=== PATIENT | female | born 1955 | race Caucasian/White ===

== ENCOUNTER → 2016-11-01 | Outpatient (CLI) | payer BC ==
[~2016-11-01] MED LIST: ACETAMINOPHEN PO; ANTIVERT12.5 MG PO; ASPIRIN PO; ASPIRIN81 M2 PO; B12 PO; GLUCOPHAGE XR500 MG PO; LANTUS100 U/ML SUBQ; LISINOPRIL PO; LISINOPRIL30 MG PO; METFORMIN PO; NAPROSYN500 MG PO; PREMARIN; ROBAXIN500 MG PO; ST JOHN'S WART PO; VICODIN 5/1 TAB 5/50 PO; [UNRECOGNIZED DRUG - REMARK]
--- NOTE | ~2016-11-01 | MY11 ---
[facility] A Service of [facility] RADIOLOGY TEXT RESULTS PATIENT: CANDY BELTRÁN LOCATION: [facility] : 57 UNIT #: [id number] AGE: [address]: Renee Askew MD SEX: F ORDER DR: [id number] [facility] [address]. [place], [place] [address] [id number] O MR#: [id number] Acc #: [id number] NAME: CANDY BELTRÁN : 1955 SEX: F STUDY DATE/TIME: 11/01/2016 14:35 UNIT: [facility] ROOM: STUDY DESCRIPTION: MY Mammogram Screening Dig Talat Attending Physician: Renee Askew M.D. Ordering Physician: Renee Askew M.D. Primary Care Physician: Renee Askew M.D. MEDICAL IMAGING REPORT This report is preliminary unless electronic signature is present EXAM Bilateral digital screening mammogram with CAD, 11/01/2016 INDICATION Routine screening, no current complaints. No family history of breast cancer. COMPARISON 10/29/2015, 09/30/2012, 06/30/2010. FINDINGS MLO and CC digital views of each breast were obtained. The exam was reviewed with an FDA-approved CAD device. Breasts are almost entirely fatty replaced. There are no masses or abnormal calcifications. IMPRESSION No change and no evidence of malignancy. Patients over the age of 40 are entered into a reminder system with target due date for the next mammogram. A result letter will also be sent to the patient. BIRADS: 1 Negative Dictated by... Aramis Acosta M.D. THIS IS AN ELECTRONICALLY VERIFIED REPORT Aramis Acosta M.D. at 11/02/2016 6:04 AM CAESAR/liseth TD: 11/01/2016 21:16 [facility] A Service of [facility] RADIOLOGY TEXT RESULTS PATIENT: CANDY BELTRÁN LOCATION: [facility] : 57 UNIT #: [id number] AGE: [address]: Renee Askew MD SEX: F ORDER DR: JOB #: [id number] MEDICAL IMAGING REPORT COPY
== END | disposition home or self-care (01) ==
LOC: CWCC 14:17
DX: Z12.31 Encounter for screening mammogram for malignant neoplasm of breast (principal)
CPT/HCPCS: G0202

== ENCOUNTER → 2017-02-14 | Outpatient (CLI) | payer BC ==
--- NOTE | ~2017-02-14 | US98 ---
[facility] A Service of [facility] RADIOLOGY TEXT RESULTS PATIENT: CANDY BELTRÁN LOCATION: [facility] : 57 UNIT #: [id number] AGE: [address]: YOLANDA URENA MD SEX: F ORDER DR: [id number] [facility] [address] [place], [place] [address] [id number] O MR#: [id number] Acc #: [id number] NAME: CANDY BELTRÁN : 1955 SEX: F STUDY DATE/TIME: 02/14/2017 10:01 UNIT: [facility] ROOM: STUDY DESCRIPTION: US Pelvic Non-OB Complete Attending Physician: Yolanda Urena M.D. Ordering Physician: Yolanda Urena M.D. Primary Care Physician: Yolanda Urena M.D. MEDICAL IMAGING REPORT This report is preliminary unless electronic signature is present EXAM Transabdominal and transvaginal pelvic ultrasound 02/14/2017 HISTORY 61-year-old female with postmenopausal bleeding which began 1 month ago and lasted only 1 day. Last menstrual period 15 years ago. Previous history of tubal ligation. Not on hormone replacement therapy medications. COMPARISON Pelvic ultrasound 07/05/2007. TECHNIQUE Transabdominal imaging was performed for generalized visualization pelvic structures while transvaginal imaging was performed for more detail evaluation of the adnexa. FINDINGS Uterus measures 6.4 x 3.8 x 5.2 cm. Endometrial bilayer measures 9 mm thickness. No focal endometrial or myometrial abnormality is seen. No fluid is demonstrated within the endometrial canal. Left ovary measures 1.8 x 1.9 x 2 cm without cystic or solid abnormality and the left ovary demonstrates normal flow. The right ovary cannot be satisfactorily visualized at the time of transabdominally and transvaginally. No pelvic free fluid is evident. IMPRESSION 1. The endometrial bilayer thickness is 9 mm. In this patient with history of post menopause without hormone replacement and with vaginal bleeding, upper limits of normal is suggested to be less than 5 mm. For this reason, endometrial sampling is suggested at this time. [facility] Service of [facility] RADIOLOGY TEXT RESULTS PATIENT: CANDY BELTRÁN LOCATION: [facility] : 57 UNIT #: [id number] AGE: [address]: OYLANDA URENA MD SEX: F ORDER DR: 2. Normal appearance of the left ovary. 3. Right ovary cannot be visualized. Dictated by... Elvi Saenz M.D. THIS IS AN ELECTRONICALLY VERIFIED REPORT Elvi Saenz M.D. at 02/15/2017 8:38 AM FRANNY/brendan TD: 02/14/2017 18:36 JOB #: [id number] MEDICAL IMAGING REPORT Page 1 of 1 COPY
== END | disposition home or self-care (01) ==
LOC: CWCC 09:09
DX: N95.0 Postmenopausal bleeding (principal); R93.8 Abnormal findings on diagnostic imaging of other specified body structures
CPT/HCPCS: 76830; 76856